=== PATIENT | female | born 1970 | race Caucasian/White ===

== ENCOUNTER → 2021-11-03 | Day surgery (SDC) | payer OTHER ==
[~2021-11-03] VITALS: Ht 157.5 cm; Wt 80.7 kg
[~2021-11-03] MED LIST: ADMELOG SO100 UNIT/1 SQ; CRESTOR40 MG PO; CYMBALTA60 MG PO; HYDROCODON-ACE1 EAC2 PO; LANTUS SOL100 UNIT/1 SQ; LEVOTHYROXINE88 MC1 PO; LISINOPRIL10 MG PO; LO-DOSE ASPIRIN81 MG PO
[2021-11-03 10:01] LABS: BUN/CREATININE RATIO 15 (0-10)
== END | disposition home or self-care (01) ==
LOC: OR 07:30
PROVIDERS: Orthopaedic Surgery
DX: G56.01 Carpal tunnel syndrome, right upper limb (principal); M65.311 Trigger thumb, right thumb; M65.331 Trigger finger, right middle finger; M65.341 Trigger finger, right ring finger; E10.9 Type 1 diabetes mellitus without complications; E78.5 Hyperlipidemia, unspecified; I10 Essential (primary) hypertension; E03.9 Hypothyroidism, unspecified; F17.210 Nicotine dependence, cigarettes, uncomplicated; Z79.82 Long term (current) use of aspirin; Z79.899 Other long term (current) drug therapy; Z20.822 Contact with and (suspected) exposure to COVID-19
CPT/HCPCS: 36415; 80048; 82962; 93005; J0690; J1100; J1170; J2250; J2370; J2405; J2704; J3010; J3301; J7030; J7120